=== PATIENT | male | born 1965 | race Hispanic/Latino ===

== ENCOUNTER → 2019-09-10 | Outpatient (CLI) | payer OTHER ==
[~2019-09-10] MED LIST: LIDOCAINE VISC 2% SOLN 15 ML UDC ONE; LIDOCAINE/PRILOCAINE 2.5-2.5% KIT ONE; MUPIROCIN 2% OINT 22 GM TUBE ONE
== END ==
LOC: WCC 14:22
PROVIDERS: ATTEND Family Medicine
DX: L89.153 Pressure ulcer of sacral region, stage 3 (principal); E55.9 Vitamin D deficiency, unspecified; F32.9 Major depressive disorder, single episode, unspecified; G82.20 Paraplegia, unspecified; M79.604 Pain in right leg; R32 Unspecified urinary incontinence; R53.1 Weakness; Z74.01 Bed confinement status; Z93.3 Colostomy status
CPT/HCPCS: 87071; 87075; 87186; 87205

== ENCOUNTER → 2019-09-15 | Outpatient (CLI) | payer OTHER | LOC: WCC 10:40 | PROVIDERS: ATTEND Family Medicine | DX: L89.153 Pressure ulcer of sacral region, stage 3 (principal); G82.20 Paraplegia, unspecified; M79.604 Pain in right leg; R53.1 Weakness; R32 Unspecified urinary incontinence; B96.89 Other specified bacterial agents as the cause of diseases classified elsewhere; E55.9 Vitamin D deficiency, unspecified; F32.9 Major depressive disorder, single episode, unspecified; Z74.01 Bed confinement status; Z93.3 Colostomy status ==

== ENCOUNTER → 2019-09-16 | Outpatient (CLI) | payer OTHER | LOC: WCC 14:10 | PROVIDERS: ATTEND Family Medicine | DX: L89.153 Pressure ulcer of sacral region, stage 3 (principal); G82.20 Paraplegia, unspecified; M79.604 Pain in right leg; R53.1 Weakness; R32 Unspecified urinary incontinence; B96.89 Other specified bacterial agents as the cause of diseases classified elsewhere; Z74.01 Bed confinement status; Z93.3 Colostomy status; F32.9 Major depressive disorder, single episode, unspecified; E55.9 Vitamin D deficiency, unspecified ==

== ENCOUNTER → 2019-09-17 | Outpatient (CLI) | payer OTHER | LOC: WCC 14:40 | PROVIDERS: ATTEND Family Medicine | DX: L89.153 Pressure ulcer of sacral region, stage 3 (principal); G82.20 Paraplegia, unspecified; M79.604 Pain in right leg; R53.1 Weakness; R32 Unspecified urinary incontinence; B96.89 Other specified bacterial agents as the cause of diseases classified elsewhere; Z93.3 Colostomy status; F32.9 Major depressive disorder, single episode, unspecified; E55.9 Vitamin D deficiency, unspecified; Z74.01 Bed confinement status ==

== ENCOUNTER → 2019-09-20 | Outpatient (CLI) | payer OTHER | LOC: WCC 12:53 | PROVIDERS: ATTEND Family Medicine | DX: L89.153 Pressure ulcer of sacral region, stage 3 (principal); G82.20 Paraplegia, unspecified; M79.604 Pain in right leg; R53.1 Weakness; B96.89 Other specified bacterial agents as the cause of diseases classified elsewhere; R32 Unspecified urinary incontinence; F32.9 Major depressive disorder, single episode, unspecified; E55.9 Vitamin D deficiency, unspecified; Z74.01 Bed confinement status; Z93.3 Colostomy status ==

== ENCOUNTER → 2019-09-21 | Outpatient (CLI) | payer OTHER | LOC: WCC 10:44 | PROVIDERS: ATTEND Family Medicine | DX: L89.153 Pressure ulcer of sacral region, stage 3 (principal); G82.20 Paraplegia, unspecified; M79.604 Pain in right leg; R53.1 Weakness; R32 Unspecified urinary incontinence; B96.89 Other specified bacterial agents as the cause of diseases classified elsewhere; E55.9 Vitamin D deficiency, unspecified; F32.9 Major depressive disorder, single episode, unspecified; Z93.3 Colostomy status; Z74.01 Bed confinement status ==

== ENCOUNTER → 2019-09-22 | Outpatient (CLI) | payer OTHER | LOC: WCC 10:25 | PROVIDERS: ATTEND Family Medicine | DX: L89.153 Pressure ulcer of sacral region, stage 3 (principal); G82.20 Paraplegia, unspecified; M79.604 Pain in right leg; R53.1 Weakness; R32 Unspecified urinary incontinence; B96.89 Other specified bacterial agents as the cause of diseases classified elsewhere; E55.9 Vitamin D deficiency, unspecified; F32.9 Major depressive disorder, single episode, unspecified; Z93.3 Colostomy status; Z74.01 Bed confinement status | CPT/HCPCS: 87071; 87075; 87205 ==

== ENCOUNTER → 2019-09-24 | Outpatient (CLI) | payer OTHER | LOC: WCC 12:45 | PROVIDERS: ATTEND Family Medicine | DX: L89.153 Pressure ulcer of sacral region, stage 3 (principal); B96.89 Other specified bacterial agents as the cause of diseases classified elsewhere; R32 Unspecified urinary incontinence; R53.1 Weakness; M79.604 Pain in right leg; G82.20 Paraplegia, unspecified; F32.9 Major depressive disorder, single episode, unspecified; E55.9 Vitamin D deficiency, unspecified; Z93.3 Colostomy status; Z74.01 Bed confinement status ==

== ENCOUNTER → 2019-09-27 | Outpatient (CLI) | payer OTHER | LOC: WCC 13:11 | PROVIDERS: ATTEND Family Medicine | DX: L89.153 Pressure ulcer of sacral region, stage 3 (principal); M79.604 Pain in right leg; R53.1 Weakness; G82.20 Paraplegia, unspecified; B96.89 Other specified bacterial agents as the cause of diseases classified elsewhere; E55.9 Vitamin D deficiency, unspecified; F32.9 Major depressive disorder, single episode, unspecified; R32 Unspecified urinary incontinence; Z93.3 Colostomy status; Z74.01 Bed confinement status ==

== ENCOUNTER → 2019-09-29 | Outpatient (CLI) | payer OTHER | LOC: WCC 09:27 | PROVIDERS: ATTEND Family Medicine | DX: L89.153 Pressure ulcer of sacral region, stage 3 (principal); M79.604 Pain in right leg; G82.20 Paraplegia, unspecified; R53.1 Weakness; B96.89 Other specified bacterial agents as the cause of diseases classified elsewhere; R32 Unspecified urinary incontinence; E55.9 Vitamin D deficiency, unspecified; F32.9 Major depressive disorder, single episode, unspecified; Z74.01 Bed confinement status; Z93.3 Colostomy status ==

== ENCOUNTER → 2019-10-01 | Outpatient (CLI) | payer OTHER | LOC: WCC 14:05 | PROVIDERS: ATTEND Family Medicine | DX: L89.153 Pressure ulcer of sacral region, stage 3 (principal); M79.604 Pain in right leg; R53.1 Weakness; G82.20 Paraplegia, unspecified; B96.89 Other specified bacterial agents as the cause of diseases classified elsewhere; R32 Unspecified urinary incontinence; F32.9 Major depressive disorder, single episode, unspecified; E55.9 Vitamin D deficiency, unspecified; Z93.3 Colostomy status; Z74.01 Bed confinement status ==

== ENCOUNTER → 2019-10-04 | Outpatient (CLI) | payer OTHER | LOC: WCC 11:22 | PROVIDERS: ATTEND Podiatrist Foot & Ankle Surgery | DX: L89.153 Pressure ulcer of sacral region, stage 3 (principal); B96.89 Other specified bacterial agents as the cause of diseases classified elsewhere; G82.20 Paraplegia, unspecified; M79.604 Pain in right leg; R53.1 Weakness; R32 Unspecified urinary incontinence; F32.9 Major depressive disorder, single episode, unspecified; E55.9 Vitamin D deficiency, unspecified; Z93.3 Colostomy status; Z74.01 Bed confinement status ==

== ENCOUNTER → 2019-10-06 | Outpatient (CLI) | payer OTHER ==
--- NOTE | 2019-10-06 11:56 | Diagnostic Imaging Report ---
EXAMINATION: SP LUMBAR, COMPLETE MIN 4VW INDICATION: Sacral pressure ulcer COMPARISON: None FINDINGS: No compression fracture. Alignment is anatomic. Oblique images demonstrate no evidence of spondylolysis. Mild multilevel degenerative changes with disc space narrowing and small osteophyte formation, most notably at L4-5 and L5-S1. No specific radiographic evidence of osteomyelitis. IMPRESSION: No acute osseous injury. Multilevel degenerative changes. Signed by: Dami Fitzgerald MD on 10/06/2019 11:53 AM
== END ==
LOC: RAD 10:42
PROVIDERS: ATTEND Family Medicine
DX: L89.153 Pressure ulcer of sacral region, stage 3 (principal)
CPT/HCPCS: 72110

== ENCOUNTER → 2019-10-06 | Outpatient (CLI) | payer OTHER | LOC: WCC 09:02 | PROVIDERS: ATTEND Family Medicine | DX: L89.153 Pressure ulcer of sacral region, stage 3 (principal); G82.20 Paraplegia, unspecified; M79.604 Pain in right leg; R53.1 Weakness; R32 Unspecified urinary incontinence; B96.89 Other specified bacterial agents as the cause of diseases classified elsewhere; E55.9 Vitamin D deficiency, unspecified; F32.9 Major depressive disorder, single episode, unspecified; Z93.3 Colostomy status; Z74.01 Bed confinement status ==

== ENCOUNTER → 2019-10-08 | Outpatient (CLI) | payer OTHER ==
[~2019-10-08] MED LIST changes: +COLLAGENASE OINTMENT 30 GM TUBE ONE
== END ==
LOC: WCC 11:06
PROVIDERS: ATTEND Family Medicine
DX: L89.153 Pressure ulcer of sacral region, stage 3 (principal); M79.604 Pain in right leg; R53.1 Weakness; G82.20 Paraplegia, unspecified; R32 Unspecified urinary incontinence; B96.89 Other specified bacterial agents as the cause of diseases classified elsewhere; F32.9 Major depressive disorder, single episode, unspecified; E55.9 Vitamin D deficiency, unspecified; Z74.01 Bed confinement status; Z93.3 Colostomy status

== ENCOUNTER → 2019-10-11 | Outpatient (CLI) | payer OTHER | LOC: WCC 14:24 | PROVIDERS: ATTEND Family Medicine | DX: L89.153 Pressure ulcer of sacral region, stage 3 (principal); G82.20 Paraplegia, unspecified; R53.1 Weakness; M79.604 Pain in right leg; R32 Unspecified urinary incontinence; B96.89 Other specified bacterial agents as the cause of diseases classified elsewhere; F32.9 Major depressive disorder, single episode, unspecified; E55.9 Vitamin D deficiency, unspecified; Z93.3 Colostomy status; Z74.01 Bed confinement status ==

== ENCOUNTER → 2019-10-13 | Outpatient (CLI) | payer OTHER | LOC: WCC 13:37 | PROVIDERS: ATTEND Family Medicine | DX: L89.153 Pressure ulcer of sacral region, stage 3 (principal); G82.20 Paraplegia, unspecified; M79.604 Pain in right leg; R53.1 Weakness; R32 Unspecified urinary incontinence; B96.89 Other specified bacterial agents as the cause of diseases classified elsewhere; E55.9 Vitamin D deficiency, unspecified; F32.9 Major depressive disorder, single episode, unspecified; Z74.01 Bed confinement status; Z93.3 Colostomy status ==

== ENCOUNTER → 2019-10-15 | Outpatient (CLI) | payer OTHER | LOC: WCC 10:18 | PROVIDERS: ATTEND Family Medicine | DX: L89.153 Pressure ulcer of sacral region, stage 3 (principal); G82.20 Paraplegia, unspecified; M79.604 Pain in right leg; R32 Unspecified urinary incontinence; R53.1 Weakness; B96.89 Other specified bacterial agents as the cause of diseases classified elsewhere; F32.9 Major depressive disorder, single episode, unspecified; E55.9 Vitamin D deficiency, unspecified; Z93.3 Colostomy status; Z74.01 Bed confinement status ==

== ENCOUNTER → 2019-10-18 | Outpatient (CLI) | payer OTHER | LOC: WCC 03:00 | PROVIDERS: ATTEND Family Medicine | DX: L89.153 Pressure ulcer of sacral region, stage 3 (principal); G82.20 Paraplegia, unspecified; R53.1 Weakness; M79.604 Pain in right leg; R32 Unspecified urinary incontinence; B96.89 Other specified bacterial agents as the cause of diseases classified elsewhere; F32.9 Major depressive disorder, single episode, unspecified; E55.9 Vitamin D deficiency, unspecified; Z93.3 Colostomy status; Z74.01 Bed confinement status ==

== ENCOUNTER → 2019-10-20 | Outpatient (CLI) | payer OTHER | LOC: WCC 14:11 | PROVIDERS: ATTEND Family Medicine | DX: L89.153 Pressure ulcer of sacral region, stage 3 (principal); G82.20 Paraplegia, unspecified; M79.604 Pain in right leg; R53.1 Weakness; R32 Unspecified urinary incontinence; B96.89 Other specified bacterial agents as the cause of diseases classified elsewhere; E55.9 Vitamin D deficiency, unspecified; F32.9 Major depressive disorder, single episode, unspecified; Z74.01 Bed confinement status; Z93.3 Colostomy status ==

== ENCOUNTER → 2019-10-22 | Outpatient (CLI) | payer OTHER | LOC: WCC 10:50 | PROVIDERS: ATTEND Family Medicine | DX: L89.153 Pressure ulcer of sacral region, stage 3 (principal); R32 Unspecified urinary incontinence; R53.1 Weakness; M79.604 Pain in right leg; G82.20 Paraplegia, unspecified; F32.9 Major depressive disorder, single episode, unspecified; E55.9 Vitamin D deficiency, unspecified; Z93.3 Colostomy status; Z74.01 Bed confinement status ==

== ENCOUNTER → 2019-10-25 | Outpatient (CLI) | payer OTHER | LOC: WCC 13:27 | PROVIDERS: ATTEND Family Medicine | DX: L89.153 Pressure ulcer of sacral region, stage 3 (principal); R32 Unspecified urinary incontinence; R53.1 Weakness; M79.604 Pain in right leg; G82.20 Paraplegia, unspecified; F32.9 Major depressive disorder, single episode, unspecified; E55.9 Vitamin D deficiency, unspecified; Z93.3 Colostomy status; Z74.01 Bed confinement status ==

== ENCOUNTER → 2019-10-27 | Outpatient (CLI) | payer OTHER | LOC: WCC 13:19 | PROVIDERS: ATTEND Family Medicine | DX: L89.153 Pressure ulcer of sacral region, stage 3 (principal); G82.20 Paraplegia, unspecified; M79.604 Pain in right leg; R32 Unspecified urinary incontinence; R53.1 Weakness; E55.9 Vitamin D deficiency, unspecified; F32.9 Major depressive disorder, single episode, unspecified; Z74.01 Bed confinement status; Z93.3 Colostomy status ==

== ENCOUNTER → 2019-10-29 | Outpatient (CLI) | payer OTHER | LOC: WCC 14:00 | PROVIDERS: ATTEND Family Medicine | DX: L89.153 Pressure ulcer of sacral region, stage 3 (principal); R32 Unspecified urinary incontinence; R53.1 Weakness; M79.604 Pain in right leg; G82.20 Paraplegia, unspecified; F32.9 Major depressive disorder, single episode, unspecified; E55.9 Vitamin D deficiency, unspecified; Z93.3 Colostomy status; Z74.01 Bed confinement status ==

== ENCOUNTER → 2019-11-02 | Outpatient (CLI) | payer OTHER | LOC: WCC 14:34 | PROVIDERS: ATTEND Family Medicine | DX: L89.153 Pressure ulcer of sacral region, stage 3 (principal); R32 Unspecified urinary incontinence; R53.1 Weakness; M79.604 Pain in right leg; G82.20 Paraplegia, unspecified; F32.9 Major depressive disorder, single episode, unspecified; E55.9 Vitamin D deficiency, unspecified; Z93.3 Colostomy status; Z74.01 Bed confinement status ==

== ENCOUNTER → 2019-11-04 | Outpatient (CLI) | payer OTHER | LOC: WCC 10:50 | PROVIDERS: ATTEND Family Medicine | DX: L89.153 Pressure ulcer of sacral region, stage 3 (principal); G82.20 Paraplegia, unspecified; M79.604 Pain in right leg; R32 Unspecified urinary incontinence; R53.1 Weakness; E55.9 Vitamin D deficiency, unspecified; F32.9 Major depressive disorder, single episode, unspecified; Z74.01 Bed confinement status; Z93.3 Colostomy status ==

== ENCOUNTER → 2019-11-08 | Outpatient (CLI) | payer OTHER ==
[~2019-11-08] MED LIST changes: -COLLAGENASE OINTMENT 30 GM TUBE ONE; -MUPIROCIN 2% OINT 22 GM TUBE ONE
== END ==
LOC: WCC 11:12
PROVIDERS: ATTEND Family Medicine
DX: L89.153 Pressure ulcer of sacral region, stage 3 (principal); G82.20 Paraplegia, unspecified; M79.604 Pain in right leg; R32 Unspecified urinary incontinence; R53.1 Weakness; F32.9 Major depressive disorder, single episode, unspecified; E55.9 Vitamin D deficiency, unspecified; Z93.3 Colostomy status; Z74.01 Bed confinement status
CPT/HCPCS: 36415

== ENCOUNTER → 2019-11-10 | Outpatient (CLI) | payer OTHER | LOC: WCC 13:44 | PROVIDERS: ATTEND Family Medicine | DX: L89.153 Pressure ulcer of sacral region, stage 3 (principal); G82.20 Paraplegia, unspecified; R32 Unspecified urinary incontinence; M79.604 Pain in right leg; R53.1 Weakness; E55.9 Vitamin D deficiency, unspecified; F32.9 Major depressive disorder, single episode, unspecified; Z74.01 Bed confinement status; Z93.3 Colostomy status ==

== ENCOUNTER → 2019-11-12 | Outpatient (CLI) | payer OTHER | LOC: WCC 12:17 | PROVIDERS: ATTEND Family Medicine | DX: L89.153 Pressure ulcer of sacral region, stage 3 (principal); G82.20 Paraplegia, unspecified; R32 Unspecified urinary incontinence; R53.1 Weakness; M79.604 Pain in right leg; F32.9 Major depressive disorder, single episode, unspecified; E55.9 Vitamin D deficiency, unspecified; Z74.01 Bed confinement status; Z93.3 Colostomy status ==

== ENCOUNTER → 2019-11-15 | Outpatient (CLI) | payer OTHER ==
[2019-11-15 14:02] LABS: ALANINE AMINOTRANSFERASE 40 IU/L (0-55); ALBUMIN 4.1 g/dL (3.5-5.0); ALBUMIN/GLOBULIN RATIO 1.5 (0.8-2.0); ALKALINE PHOSPHATASE 79 IU/L (40-150); BLOOD UREA NITROGEN 14 mg/dL (7-26); BUN/CREATININE RATIO 16 (6-25); CALCIUM 9.2 mg/dL (8.4-10.2); CARBON DIOXIDE 25 mmol/L (22-29); CHLORIDE 104 mmol/L (98-107); CREATININE, SERUM 0.87 mg/dL (0.72-1.25); EST GLOMERULAR FILTRATION RATE > 60 ML/MIN (60-); GLUCOSE 74 mg/dL (74-118); SODIUM 140 mmol/L (136-145)
[2019-11-15 14:04] LABS: BASOPHILS % 0.7 % (0.0-1.0); EOSINOPHILS # (AUTO) 0.2 (0.0-0.4); EOSINOPHILS % 2.7 % (0.0-6.0); HEMATOCRIT 41.1 % (38.2-49.6); HEMOGLOBIN 13.4 g/dL (14.0-18.0); LYMPHOCYTES # (AUTO) 1.4 (1.0-3.2); LYMPHOCYTES % 23.4 % (18.0-39.1); MEAN CORPUSCULAR HEMOGLOBIN 29.5 pg (28-32); MEAN CORPUSCULAR HGB CONC 32.6 g/dL (31-35); MEAN CORPUSCULAR VOLUME 90.3 fL (81-99); MONOCYTES # (AUTO) 0.5 (0.2-0.8); NEUTROPHILS # (AUTO) 3.8 (2.1-6.9); NEUTROPHILS % 64.7 % (38.7-80.0); PLATELET COUNT 186 x10e3/uL (140-360); RED BLOOD COUNT 4.55 x10e6/uL (4.3-5.7)
== END ==
LOC: WCC 13:50
PROVIDERS: ATTEND Family Medicine
DX: L89.153 Pressure ulcer of sacral region, stage 3 (principal); G82.20 Paraplegia, unspecified; R32 Unspecified urinary incontinence; M79.604 Pain in right leg; R53.1 Weakness; F32.9 Major depressive disorder, single episode, unspecified; E55.9 Vitamin D deficiency, unspecified; Z74.01 Bed confinement status; Z93.3 Colostomy status
CPT/HCPCS: 36415; 80053; 84134; 85025

== ENCOUNTER → 2019-11-18 | Outpatient (CLI) | payer OTHER | LOC: WCC 12:56 | PROVIDERS: ATTEND Family Medicine | DX: L89.153 Pressure ulcer of sacral region, stage 3 (principal); G82.20 Paraplegia, unspecified; R32 Unspecified urinary incontinence; R53.1 Weakness; M79.604 Pain in right leg; E55.9 Vitamin D deficiency, unspecified; F32.9 Major depressive disorder, single episode, unspecified; Z74.01 Bed confinement status; Z93.3 Colostomy status | CPT/HCPCS: Q4186 ==

== ENCOUNTER → 2019-11-22 | Outpatient (CLI) | payer OTHER | LOC: WCC 12:25 | PROVIDERS: ATTEND Family Medicine | DX: L89.153 Pressure ulcer of sacral region, stage 3 (principal); G82.20 Paraplegia, unspecified; R32 Unspecified urinary incontinence; R53.1 Weakness; M79.604 Pain in right leg; F32.9 Major depressive disorder, single episode, unspecified; E55.9 Vitamin D deficiency, unspecified; Z74.01 Bed confinement status; Z93.3 Colostomy status ==

== ENCOUNTER → 2019-11-24 | Outpatient (CLI) | payer OTHER | LOC: WCC 14:07 | PROVIDERS: ATTEND Family Medicine | DX: L89.153 Pressure ulcer of sacral region, stage 3 (principal); G82.20 Paraplegia, unspecified; M79.604 Pain in right leg; R32 Unspecified urinary incontinence; R53.1 Weakness; E55.9 Vitamin D deficiency, unspecified; F32.9 Major depressive disorder, single episode, unspecified; Z93.3 Colostomy status; Z74.01 Bed confinement status | CPT/HCPCS: Q4186 ==

== ENCOUNTER → 2019-11-26 | Outpatient (CLI) | payer OTHER | LOC: WCC 13:06 | PROVIDERS: ATTEND Family Medicine | DX: L89.153 Pressure ulcer of sacral region, stage 3 (principal); G82.20 Paraplegia, unspecified; M79.604 Pain in right leg; R53.1 Weakness; R32 Unspecified urinary incontinence; F32.9 Major depressive disorder, single episode, unspecified; E55.9 Vitamin D deficiency, unspecified; Z74.01 Bed confinement status; Z93.3 Colostomy status ==

== ENCOUNTER → 2019-12-03 | Outpatient (CLI) | payer OTHER | LOC: WCC 10:18 | PROVIDERS: ATTEND Family Medicine | DX: L89.153 Pressure ulcer of sacral region, stage 3 (principal); G82.20 Paraplegia, unspecified; R32 Unspecified urinary incontinence; R53.1 Weakness; M79.604 Pain in right leg; F32.9 Major depressive disorder, single episode, unspecified; E55.9 Vitamin D deficiency, unspecified; Z74.01 Bed confinement status; Z93.3 Colostomy status ==

== ENCOUNTER → 2019-12-06 | Outpatient (CLI) | payer OTHER | LOC: WCC 13:13 | PROVIDERS: ATTEND Family Medicine | DX: L89.153 Pressure ulcer of sacral region, stage 3 (principal); G82.20 Paraplegia, unspecified; R32 Unspecified urinary incontinence; R53.1 Weakness; M79.604 Pain in right leg; F32.9 Major depressive disorder, single episode, unspecified; E55.9 Vitamin D deficiency, unspecified; Z93.3 Colostomy status; Z74.01 Bed confinement status ==

== ENCOUNTER → 2019-12-08 | Outpatient (CLI) | payer OTHER ==
[~2019-12-08] MED LIST changes: -LIDOCAINE VISC 2% SOLN 15 ML UDC ONE
== END ==
LOC: WCC 11:00
PROVIDERS: ATTEND Family Medicine
DX: L89.153 Pressure ulcer of sacral region, stage 3 (principal); M79.604 Pain in right leg; R32 Unspecified urinary incontinence; R53.1 Weakness; E55.9 Vitamin D deficiency, unspecified; F32.9 Major depressive disorder, single episode, unspecified; Z74.01 Bed confinement status; Z93.3 Colostomy status
CPT/HCPCS: Q4186

== ENCOUNTER → 2019-12-10 | Outpatient (CLI) | payer OTHER | LOC: WCC 09:06 | PROVIDERS: ATTEND Family Medicine | DX: L89.153 Pressure ulcer of sacral region, stage 3 (principal); G82.20 Paraplegia, unspecified; M79.604 Pain in right leg; R32 Unspecified urinary incontinence; R53.1 Weakness; F32.9 Major depressive disorder, single episode, unspecified; E55.9 Vitamin D deficiency, unspecified; Z74.01 Bed confinement status; Z93.3 Colostomy status ==

== ENCOUNTER → 2019-12-13 | Outpatient (CLI) | payer OTHER | LOC: WCC 10:40 | PROVIDERS: ATTEND Family Medicine | DX: L89.153 Pressure ulcer of sacral region, stage 3 (principal); G82.20 Paraplegia, unspecified; R32 Unspecified urinary incontinence; R53.1 Weakness; M79.604 Pain in right leg; F32.9 Major depressive disorder, single episode, unspecified; E55.9 Vitamin D deficiency, unspecified; Z93.3 Colostomy status; Z74.01 Bed confinement status ==

== ENCOUNTER → 2019-12-15 | Outpatient (CLI) | payer OTHER | LOC: WCC 12-14 11:14 | PROVIDERS: ATTEND Family Medicine | DX: L89.153 Pressure ulcer of sacral region, stage 3 (principal); G82.20 Paraplegia, unspecified; R32 Unspecified urinary incontinence; M79.604 Pain in right leg; R53.1 Weakness; F32.9 Major depressive disorder, single episode, unspecified; E55.9 Vitamin D deficiency, unspecified; Z74.01 Bed confinement status; Z93.3 Colostomy status ==

== ENCOUNTER → 2019-12-17 | Outpatient (CLI) | payer OTHER | LOC: WCC 12:26 | PROVIDERS: ATTEND Family Medicine | DX: L89.153 Pressure ulcer of sacral region, stage 3 (principal); G82.20 Paraplegia, unspecified; R32 Unspecified urinary incontinence; M79.604 Pain in right leg; R53.1 Weakness; F32.9 Major depressive disorder, single episode, unspecified; E55.9 Vitamin D deficiency, unspecified; Z93.3 Colostomy status; Z74.01 Bed confinement status ==

== ENCOUNTER → 2019-12-20 | Outpatient (CLI) | payer OTHER | LOC: WCC 14:11 | PROVIDERS: ATTEND Family Medicine | DX: L89.153 Pressure ulcer of sacral region, stage 3 (principal); G82.20 Paraplegia, unspecified; R32 Unspecified urinary incontinence; R53.1 Weakness; M79.604 Pain in right leg; F32.9 Major depressive disorder, single episode, unspecified; E55.9 Vitamin D deficiency, unspecified; Z93.3 Colostomy status; Z74.01 Bed confinement status ==

== ENCOUNTER → 2019-12-22 | Outpatient (CLI) | payer OTHER | LOC: WCC 10:22 | PROVIDERS: ATTEND Family Medicine | DX: L89.153 Pressure ulcer of sacral region, stage 3 (principal); G82.20 Paraplegia, unspecified; R32 Unspecified urinary incontinence; M79.604 Pain in right leg; R53.1 Weakness; E55.9 Vitamin D deficiency, unspecified; F32.9 Major depressive disorder, single episode, unspecified; Z74.01 Bed confinement status; Z93.3 Colostomy status | CPT/HCPCS: Q4186 ==

== ENCOUNTER → 2019-12-24 | Outpatient (CLI) | payer OTHER | LOC: WCC 11:00 | PROVIDERS: ATTEND Family Medicine | DX: L89.153 Pressure ulcer of sacral region, stage 3 (principal); G82.20 Paraplegia, unspecified; R32 Unspecified urinary incontinence; R53.1 Weakness; M79.604 Pain in right leg; F32.9 Major depressive disorder, single episode, unspecified; E55.9 Vitamin D deficiency, unspecified; Z74.01 Bed confinement status; Z93.3 Colostomy status ==

== ENCOUNTER → 2019-12-27 | Outpatient (CLI) | payer OTHER | LOC: WCC 12:53 | PROVIDERS: ATTEND Family Medicine | DX: L89.153 Pressure ulcer of sacral region, stage 3 (principal); G82.20 Paraplegia, unspecified; R32 Unspecified urinary incontinence; M79.604 Pain in right leg; R53.1 Weakness; F32.9 Major depressive disorder, single episode, unspecified; E55.9 Vitamin D deficiency, unspecified; Z93.3 Colostomy status; Z74.01 Bed confinement status ==

== ENCOUNTER → 2019-12-29 | Outpatient (CLI) | payer OTHER | LOC: WCC 11:19 | PROVIDERS: ATTEND Family Medicine | DX: L89.153 Pressure ulcer of sacral region, stage 3 (principal); G82.20 Paraplegia, unspecified; R32 Unspecified urinary incontinence; M79.604 Pain in right leg; R53.1 Weakness; E55.9 Vitamin D deficiency, unspecified; F32.9 Major depressive disorder, single episode, unspecified; Z93.3 Colostomy status; Z74.01 Bed confinement status ==

== ENCOUNTER → 2019-12-31 | Outpatient (CLI) | payer OTHER | LOC: WCC 11:06 | PROVIDERS: ATTEND Family Medicine | DX: L89.153 Pressure ulcer of sacral region, stage 3 (principal); G82.20 Paraplegia, unspecified; R32 Unspecified urinary incontinence; R53.1 Weakness; M79.604 Pain in right leg; F32.9 Major depressive disorder, single episode, unspecified; E55.9 Vitamin D deficiency, unspecified; Z74.01 Bed confinement status; Z93.3 Colostomy status ==

== ENCOUNTER → 2020-01-03 | Outpatient (CLI) | payer OTHER | LOC: WCC 12:57 | PROVIDERS: ATTEND Family Medicine | DX: L89.153 Pressure ulcer of sacral region, stage 3 (principal); R32 Unspecified urinary incontinence; R53.1 Weakness; M79.604 Pain in right leg; G82.20 Paraplegia, unspecified; F32.9 Major depressive disorder, single episode, unspecified; E55.9 Vitamin D deficiency, unspecified; Z93.3 Colostomy status; Z74.01 Bed confinement status ==

== ENCOUNTER → 2020-01-05 | Outpatient (CLI) | payer OTHER | LOC: WCC 11:26 | PROVIDERS: ATTEND Family Medicine | DX: L89.153 Pressure ulcer of sacral region, stage 3 (principal); R32 Unspecified urinary incontinence; R53.1 Weakness; M79.604 Pain in right leg; G82.20 Paraplegia, unspecified; E55.9 Vitamin D deficiency, unspecified; F32.9 Major depressive disorder, single episode, unspecified; Z93.3 Colostomy status; Z74.01 Bed confinement status | CPT/HCPCS: Q4186 ==

== ENCOUNTER → 2020-01-07 | Outpatient (CLI) | payer OTHER | LOC: WCC 14:18 | PROVIDERS: ATTEND Family Medicine | DX: L89.153 Pressure ulcer of sacral region, stage 3 (principal); R32 Unspecified urinary incontinence; R53.1 Weakness; G82.20 Paraplegia, unspecified; M79.604 Pain in right leg; E55.9 Vitamin D deficiency, unspecified; F32.9 Major depressive disorder, single episode, unspecified; Z74.01 Bed confinement status; Z93.3 Colostomy status ==

== ENCOUNTER → 2020-01-10 | Outpatient (CLI) | payer OTHER ==
[~2020-01-10] MED LIST changes: +LIDOCAINE VISC 2% SOLN 15 ML UDC ONE
== END ==
LOC: WCC 14:36
PROVIDERS: ATTEND Family Medicine
DX: L89.153 Pressure ulcer of sacral region, stage 3 (principal); R32 Unspecified urinary incontinence; M79.604 Pain in right leg; R53.1 Weakness; G82.20 Paraplegia, unspecified; F32.9 Major depressive disorder, single episode, unspecified; E55.9 Vitamin D deficiency, unspecified; Z93.3 Colostomy status; Z74.01 Bed confinement status

== ENCOUNTER → 2020-01-12 | Outpatient (CLI) | payer OTHER | LOC: WCC 13:51 | PROVIDERS: ATTEND Family Medicine | DX: L89.153 Pressure ulcer of sacral region, stage 3 (principal); R32 Unspecified urinary incontinence; M79.604 Pain in right leg; R53.1 Weakness; G82.20 Paraplegia, unspecified; E55.9 Vitamin D deficiency, unspecified; F32.9 Major depressive disorder, single episode, unspecified; Z74.01 Bed confinement status; Z93.3 Colostomy status | CPT/HCPCS: Q4186 ==

== ENCOUNTER → 2020-01-14 | Outpatient (CLI) | payer OTHER | LOC: WCC 11:37 | PROVIDERS: ATTEND Family Medicine | DX: L89.153 Pressure ulcer of sacral region, stage 3 (principal); G82.20 Paraplegia, unspecified; R32 Unspecified urinary incontinence; M79.604 Pain in right leg; R53.1 Weakness; F32.9 Major depressive disorder, single episode, unspecified; E55.9 Vitamin D deficiency, unspecified; Z74.01 Bed confinement status; Z93.3 Colostomy status ==

== ENCOUNTER → 2020-01-17 | Outpatient (CLI) | payer OTHER | LOC: WCC 13:43 | PROVIDERS: ATTEND Family Medicine | DX: L89.153 Pressure ulcer of sacral region, stage 3 (principal); G82.20 Paraplegia, unspecified; R32 Unspecified urinary incontinence; M79.604 Pain in right leg; R53.1 Weakness; E55.9 Vitamin D deficiency, unspecified; F32.9 Major depressive disorder, single episode, unspecified; Z93.3 Colostomy status; Z74.01 Bed confinement status ==

== ENCOUNTER → 2020-01-19 | Outpatient (CLI) | payer OTHER | LOC: WCC 12:42 | PROVIDERS: ATTEND Family Medicine | DX: L89.153 Pressure ulcer of sacral region, stage 3 (principal); G82.20 Paraplegia, unspecified; M79.604 Pain in right leg; R32 Unspecified urinary incontinence; R53.1 Weakness; E55.9 Vitamin D deficiency, unspecified; F32.9 Major depressive disorder, single episode, unspecified; Z74.01 Bed confinement status; Z93.3 Colostomy status ==

== ENCOUNTER → 2020-01-21 | Outpatient (CLI) | payer OTHER | LOC: WCC 13:10 | PROVIDERS: ATTEND Family Medicine | DX: L89.153 Pressure ulcer of sacral region, stage 3 (principal); G82.20 Paraplegia, unspecified; R32 Unspecified urinary incontinence; R53.1 Weakness; M79.604 Pain in right leg; F32.9 Major depressive disorder, single episode, unspecified; E55.9 Vitamin D deficiency, unspecified; Z93.3 Colostomy status; Z74.01 Bed confinement status ==

== ENCOUNTER → 2020-01-24 | Outpatient (CLI) | payer OTHER | LOC: WCC 15:47 | PROVIDERS: ATTEND Family Medicine | DX: L89.153 Pressure ulcer of sacral region, stage 3 (principal); G82.20 Paraplegia, unspecified; R32 Unspecified urinary incontinence; M79.604 Pain in right leg; R53.1 Weakness; F32.9 Major depressive disorder, single episode, unspecified; E55.9 Vitamin D deficiency, unspecified; Z93.3 Colostomy status; Z74.01 Bed confinement status ==

== ENCOUNTER → 2020-01-26 | Outpatient (CLI) | payer OTHER | LOC: WCC 11:58 | PROVIDERS: ATTEND Family Medicine | DX: L89.153 Pressure ulcer of sacral region, stage 3 (principal); G82.20 Paraplegia, unspecified; R32 Unspecified urinary incontinence; R53.1 Weakness; M79.604 Pain in right leg; E55.9 Vitamin D deficiency, unspecified; F32.9 Major depressive disorder, single episode, unspecified; Z93.3 Colostomy status; Z74.01 Bed confinement status | CPT/HCPCS: 15271; Q4186 ==

== ENCOUNTER → 2020-01-28 | Outpatient (CLI) | payer OTHER | LOC: WCC 14:35 | PROVIDERS: ATTEND Family Medicine | DX: L89.153 Pressure ulcer of sacral region, stage 3 (principal); R32 Unspecified urinary incontinence; R53.1 Weakness; M79.604 Pain in right leg; G82.20 Paraplegia, unspecified; F32.9 Major depressive disorder, single episode, unspecified; E55.9 Vitamin D deficiency, unspecified; Z93.3 Colostomy status; Z74.01 Bed confinement status ==

== ENCOUNTER → 2020-01-31 | Outpatient (CLI) | payer OTHER | LOC: WCC 11:49 | PROVIDERS: ATTEND Family Medicine | DX: L89.153 Pressure ulcer of sacral region, stage 3 (principal); R32 Unspecified urinary incontinence; R53.1 Weakness; M79.604 Pain in right leg; G82.20 Paraplegia, unspecified; F32.9 Major depressive disorder, single episode, unspecified; E55.9 Vitamin D deficiency, unspecified; Z93.3 Colostomy status; Z74.01 Bed confinement status ==

== ENCOUNTER → 2020-03-03 | Outpatient (CLI) | payer OTHER | LOC: WCC 13:55 | PROVIDERS: ATTEND Family Medicine | DX: L89.153 Pressure ulcer of sacral region, stage 3 (principal); L89.616 Pressure-induced deep tissue damage of right heel; M96.89 Other intraoperative and postprocedural complications and disorders of the musculoskeletal system; S31.103A Unspecified open wound of abdominal wall, right lower quadrant without penetration into peritoneal cavity, initial encounter; R32 Unspecified urinary incontinence; R53.1 Weakness; M79.604 Pain in right leg; G82.20 Paraplegia, unspecified; F32.9 Major depressive disorder, single episode, unspecified; E55.9 Vitamin D deficiency, unspecified; Z93.3 Colostomy status; Z74.01 Bed confinement status ==

== ENCOUNTER → 2020-03-06 | Outpatient (CLI) | payer OTHER | LOC: WCC 14:44 | PROVIDERS: ATTEND Family Medicine | DX: L89.153 Pressure ulcer of sacral region, stage 3 (principal); L89.616 Pressure-induced deep tissue damage of right heel; M96.89 Other intraoperative and postprocedural complications and disorders of the musculoskeletal system; S31.103A Unspecified open wound of abdominal wall, right lower quadrant without penetration into peritoneal cavity, initial encounter; R32 Unspecified urinary incontinence; R53.1 Weakness; G82.20 Paraplegia, unspecified; M79.604 Pain in right leg; F32.9 Major depressive disorder, single episode, unspecified; E55.9 Vitamin D deficiency, unspecified; Z93.3 Colostomy status; Z74.01 Bed confinement status ==

== ENCOUNTER → 2020-03-08 | Outpatient (CLI) | payer OTHER | LOC: WCC 11:13 | PROVIDERS: ATTEND Family Medicine | DX: L89.153 Pressure ulcer of sacral region, stage 3 (principal); L89.612 Pressure ulcer of right heel, stage 2; L89.616 Pressure-induced deep tissue damage of right heel; M96.89 Other intraoperative and postprocedural complications and disorders of the musculoskeletal system; S31.103A Unspecified open wound of abdominal wall, right lower quadrant without penetration into peritoneal cavity, initial encounter; R32 Unspecified urinary incontinence; M79.604 Pain in right leg; R53.1 Weakness; G82.20 Paraplegia, unspecified; E55.9 Vitamin D deficiency, unspecified; F32.9 Major depressive disorder, single episode, unspecified; Z93.3 Colostomy status; Z74.01 Bed confinement status ==

== ENCOUNTER → 2020-03-10 | Outpatient (CLI) | payer OTHER ==
[~2020-03-10] MED LIST changes: +COLLAGENASE OINTMENT 30 GM TUBE ONE; +MINERAL OIL/PETROLAT/GLYCERI 6OZ BTL ONE; +MUPIROCIN 2% OINT 22 GM TUBE ONE; +TRYPSIN/BALSAM PERU/CASTOR OIL ONE
== END ==
LOC: WCC 15:19
PROVIDERS: ATTEND Family Medicine
DX: L89.153 Pressure ulcer of sacral region, stage 3 (principal); L89.612 Pressure ulcer of right heel, stage 2; M96.89 Other intraoperative and postprocedural complications and disorders of the musculoskeletal system; S31.103A Unspecified open wound of abdominal wall, right lower quadrant without penetration into peritoneal cavity, initial encounter; R32 Unspecified urinary incontinence; R53.1 Weakness; M79.604 Pain in right leg; G82.20 Paraplegia, unspecified; F32.9 Major depressive disorder, single episode, unspecified; E55.9 Vitamin D deficiency, unspecified; Z93.3 Colostomy status; Z74.01 Bed confinement status

== ENCOUNTER → 2020-03-15 | Outpatient (CLI) | payer OTHER | LOC: WCC 14:51 | PROVIDERS: ATTEND Family Medicine | DX: L89.153 Pressure ulcer of sacral region, stage 3 (principal); L89.612 Pressure ulcer of right heel, stage 2; M96.89 Other intraoperative and postprocedural complications and disorders of the musculoskeletal system; S31.103A Unspecified open wound of abdominal wall, right lower quadrant without penetration into peritoneal cavity, initial encounter; R32 Unspecified urinary incontinence; M79.604 Pain in right leg; R53.1 Weakness; G82.20 Paraplegia, unspecified; E55.9 Vitamin D deficiency, unspecified; F32.9 Major depressive disorder, single episode, unspecified; Z74.01 Bed confinement status; Z93.3 Colostomy status ==

== ENCOUNTER → 2020-03-17 | Outpatient (CLI) | payer OTHER | LOC: WCC 14:01 | PROVIDERS: ATTEND Family Medicine | DX: L89.153 Pressure ulcer of sacral region, stage 3 (principal); L89.612 Pressure ulcer of right heel, stage 2; M96.89 Other intraoperative and postprocedural complications and disorders of the musculoskeletal system; S31.103A Unspecified open wound of abdominal wall, right lower quadrant without penetration into peritoneal cavity, initial encounter; R32 Unspecified urinary incontinence; R53.1 Weakness; M79.604 Pain in right leg; G82.20 Paraplegia, unspecified; F32.9 Major depressive disorder, single episode, unspecified; E55.9 Vitamin D deficiency, unspecified; Z93.3 Colostomy status; Z74.01 Bed confinement status ==

== ENCOUNTER → 2020-03-20 | Outpatient (CLI) | payer OTHER | LOC: WCC 11:25 | PROVIDERS: ATTEND Family Medicine | DX: L89.153 Pressure ulcer of sacral region, stage 3 (principal); L89.612 Pressure ulcer of right heel, stage 2; M96.89 Other intraoperative and postprocedural complications and disorders of the musculoskeletal system; S31.103A Unspecified open wound of abdominal wall, right lower quadrant without penetration into peritoneal cavity, initial encounter; R32 Unspecified urinary incontinence; R53.1 Weakness; M79.604 Pain in right leg; G82.20 Paraplegia, unspecified; F32.9 Major depressive disorder, single episode, unspecified; E55.9 Vitamin D deficiency, unspecified; Z74.01 Bed confinement status; Z93.3 Colostomy status ==

== ENCOUNTER → 2020-03-22 | Outpatient (CLI) | payer OTHER | LOC: WCC 14:54 | PROVIDERS: ATTEND Family Medicine | DX: L89.153 Pressure ulcer of sacral region, stage 3 (principal); L89.612 Pressure ulcer of right heel, stage 2; M96.89 Other intraoperative and postprocedural complications and disorders of the musculoskeletal system; S31.103A Unspecified open wound of abdominal wall, right lower quadrant without penetration into peritoneal cavity, initial encounter; M79.604 Pain in right leg; R53.2 Functional quadriplegia; R83.1 Abnormal level of hormones in cerebrospinal fluid; E55.9 Vitamin D deficiency, unspecified; F32.9 Major depressive disorder, single episode, unspecified; Z74.01 Bed confinement status; Z93.3 Colostomy status ==

== ENCOUNTER → 2020-03-24 | Outpatient (CLI) | payer OTHER | LOC: WCC 13:32 | PROVIDERS: ATTEND Family Medicine | DX: L89.612 Pressure ulcer of right heel, stage 2 (principal); M96.89 Other intraoperative and postprocedural complications and disorders of the musculoskeletal system; R32 Unspecified urinary incontinence; M79.604 Pain in right leg; R53.1 Weakness; G82.20 Paraplegia, unspecified; F32.9 Major depressive disorder, single episode, unspecified; E55.9 Vitamin D deficiency, unspecified; Z93.3 Colostomy status; Z74.01 Bed confinement status ==

== ENCOUNTER → 2020-03-27 | Outpatient (CLI) | payer OTHER | LOC: WCC 10:55 | PROVIDERS: ATTEND Family Medicine | DX: L89.612 Pressure ulcer of right heel, stage 2 (principal); M96.89 Other intraoperative and postprocedural complications and disorders of the musculoskeletal system; R32 Unspecified urinary incontinence; R53.1 Weakness; M79.604 Pain in right leg; G82.20 Paraplegia, unspecified; F32.9 Major depressive disorder, single episode, unspecified; E55.9 Vitamin D deficiency, unspecified; Z93.3 Colostomy status; Z74.01 Bed confinement status ==

== ENCOUNTER → 2020-03-29 | Outpatient (CLI) | payer OTHER | LOC: WCC 11:37 | PROVIDERS: ATTEND Family Medicine | DX: L89.612 Pressure ulcer of right heel, stage 2 (principal); M96.89 Other intraoperative and postprocedural complications and disorders of the musculoskeletal system; R32 Unspecified urinary incontinence; M79.604 Pain in right leg; R53.1 Weakness; G82.20 Paraplegia, unspecified; E55.9 Vitamin D deficiency, unspecified; F32.9 Major depressive disorder, single episode, unspecified; Z74.01 Bed confinement status; Z93.3 Colostomy status ==

== ENCOUNTER → 2020-04-03 | Outpatient (CLI) | payer OTHER | LOC: WCC 14:22 | PROVIDERS: ATTEND Family Medicine | DX: L89.612 Pressure ulcer of right heel, stage 2 (principal); M96.89 Other intraoperative and postprocedural complications and disorders of the musculoskeletal system; R32 Unspecified urinary incontinence; R53.1 Weakness; M79.604 Pain in right leg; G82.20 Paraplegia, unspecified; F32.9 Major depressive disorder, single episode, unspecified; E55.9 Vitamin D deficiency, unspecified; Z74.01 Bed confinement status; Z93.3 Colostomy status ==

== ENCOUNTER → 2020-04-05 | Outpatient (CLI) | payer OTHER | LOC: WCC 14:50 | PROVIDERS: ATTEND Family Medicine | DX: L89.612 Pressure ulcer of right heel, stage 2 (principal); M96.89 Other intraoperative and postprocedural complications and disorders of the musculoskeletal system; R32 Unspecified urinary incontinence; M79.604 Pain in right leg; R53.1 Weakness; G82.20 Paraplegia, unspecified; F32.9 Major depressive disorder, single episode, unspecified; E55.9 Vitamin D deficiency, unspecified; Z74.01 Bed confinement status; Z93.3 Colostomy status ==

== ENCOUNTER → 2020-04-10 | Outpatient (CLI) | payer OTHER ==
[~2020-04-10] MED LIST changes: -COLLAGENASE OINTMENT 30 GM TUBE ONE; -LIDOCAINE VISC 2% SOLN 15 ML UDC ONE; -LIDOCAINE/PRILOCAINE 2.5-2.5% KIT ONE; -MINERAL OIL/PETROLAT/GLYCERI 6OZ BTL ONE; -TRYPSIN/BALSAM PERU/CASTOR OIL ONE
== END ==
LOC: WCC 13:27
PROVIDERS: ATTEND Family Medicine
DX: L89.612 Pressure ulcer of right heel, stage 2 (principal); M96.89 Other intraoperative and postprocedural complications and disorders of the musculoskeletal system; R32 Unspecified urinary incontinence; R53.1 Weakness; M79.604 Pain in right leg; G82.20 Paraplegia, unspecified; F32.9 Major depressive disorder, single episode, unspecified; E55.9 Vitamin D deficiency, unspecified; Z93.3 Colostomy status; Z74.01 Bed confinement status

== ENCOUNTER → 2020-04-12 | Outpatient (CLI) | payer OTHER | LOC: WCC 13:05 | PROVIDERS: ATTEND Family Medicine | DX: L89.612 Pressure ulcer of right heel, stage 2 (principal); M96.89 Other intraoperative and postprocedural complications and disorders of the musculoskeletal system; R32 Unspecified urinary incontinence; M79.604 Pain in right leg; R53.1 Weakness; G82.20 Paraplegia, unspecified; E55.9 Vitamin D deficiency, unspecified; F32.9 Major depressive disorder, single episode, unspecified; Z74.01 Bed confinement status; Z93.3 Colostomy status ==

== ENCOUNTER → 2020-04-14 | Outpatient (CLI) | payer OTHER | LOC: WCC 16:06 | PROVIDERS: ATTEND Family Medicine | DX: L89.612 Pressure ulcer of right heel, stage 2 (principal); M96.89 Other intraoperative and postprocedural complications and disorders of the musculoskeletal system; R32 Unspecified urinary incontinence; R53.1 Weakness; M79.604 Pain in right leg; G82.20 Paraplegia, unspecified; F32.9 Major depressive disorder, single episode, unspecified; E55.9 Vitamin D deficiency, unspecified; Z93.3 Colostomy status; Z74.01 Bed confinement status ==

== ENCOUNTER 2020-04-17 13:47 | Outpatient (RCR) | payer OTHER | END 2020-05-08 | LOC: WCC 13:47 | PROVIDERS: ATTEND Family Medicine | DX: L89.612 Pressure ulcer of right heel, stage 2 (principal); M96.89 Other intraoperative and postprocedural complications and disorders of the musculoskeletal system; R32 Unspecified urinary incontinence; R53.1 Weakness; M79.604 Pain in right leg; G82.20 Paraplegia, unspecified; F32.9 Major depressive disorder, single episode, unspecified; E55.9 Vitamin D deficiency, unspecified; Z93.3 Colostomy status; Z74.01 Bed confinement status ==

== ENCOUNTER → 2020-04-19 | Outpatient (CLI) | payer OTHER | LOC: WCC 14:11 | PROVIDERS: ATTEND Family Medicine | DX: L89.612 Pressure ulcer of right heel, stage 2 (principal); M96.89 Other intraoperative and postprocedural complications and disorders of the musculoskeletal system; R32 Unspecified urinary incontinence; M79.604 Pain in right leg; R53.1 Weakness; G82.20 Paraplegia, unspecified; E55.9 Vitamin D deficiency, unspecified; F32.9 Major depressive disorder, single episode, unspecified; Z74.01 Bed confinement status; Z93.3 Colostomy status ==

== ENCOUNTER → 2020-04-24 | Outpatient (CLI) | payer OTHER | LOC: WCC 09:26 | PROVIDERS: ATTEND Family Medicine | DX: L89.612 Pressure ulcer of right heel, stage 2 (principal); M96.89 Other intraoperative and postprocedural complications and disorders of the musculoskeletal system; R32 Unspecified urinary incontinence; R53.1 Weakness; M79.604 Pain in right leg; G82.20 Paraplegia, unspecified; F32.9 Major depressive disorder, single episode, unspecified; E55.9 Vitamin D deficiency, unspecified; Z93.3 Colostomy status; Z74.01 Bed confinement status ==

== ENCOUNTER → 2020-04-26 | Outpatient (CLI) | payer OTHER | LOC: WCC 12:06 | PROVIDERS: ATTEND Family Medicine | DX: L89.612 Pressure ulcer of right heel, stage 2 (principal); M96.89 Other intraoperative and postprocedural complications and disorders of the musculoskeletal system; R32 Unspecified urinary incontinence; M79.604 Pain in right leg; R53.1 Weakness; G82.20 Paraplegia, unspecified; F32.9 Major depressive disorder, single episode, unspecified; E55.9 Vitamin D deficiency, unspecified; Z74.01 Bed confinement status; Z93.3 Colostomy status ==

== ENCOUNTER → 2020-05-01 | Outpatient (CLI) | payer OTHER | LOC: WCC 15:45 | PROVIDERS: ATTEND Family Medicine | DX: L89.612 Pressure ulcer of right heel, stage 2 (principal); M96.89 Other intraoperative and postprocedural complications and disorders of the musculoskeletal system; R32 Unspecified urinary incontinence; R53.1 Weakness; M79.604 Pain in right leg; G82.20 Paraplegia, unspecified; F32.9 Major depressive disorder, single episode, unspecified; E55.9 Vitamin D deficiency, unspecified; Z93.3 Colostomy status; Z74.01 Bed confinement status ==

== ENCOUNTER → 2020-05-03 | Outpatient (CLI) | payer OTHER | LOC: WCC 13:29 | PROVIDERS: ATTEND Family Medicine | DX: L89.612 Pressure ulcer of right heel, stage 2 (principal); M96.89 Other intraoperative and postprocedural complications and disorders of the musculoskeletal system; R32 Unspecified urinary incontinence; R53.1 Weakness; M79.604 Pain in right leg; G82.20 Paraplegia, unspecified; F32.9 Major depressive disorder, single episode, unspecified; E55.9 Vitamin D deficiency, unspecified; Z93.3 Colostomy status; Z74.01 Bed confinement status ==

== ENCOUNTER → 2020-05-08 | Outpatient (CLI) | payer OTHER | LOC: WCC 15:29 | PROVIDERS: ATTEND Family Medicine | DX: L89.612 Pressure ulcer of right heel, stage 2 (principal); M96.89 Other intraoperative and postprocedural complications and disorders of the musculoskeletal system; R32 Unspecified urinary incontinence; R53.1 Weakness; M79.604 Pain in right leg; G82.20 Paraplegia, unspecified; F32.9 Major depressive disorder, single episode, unspecified; E55.9 Vitamin D deficiency, unspecified; Z93.3 Colostomy status; Z74.01 Bed confinement status ==

== ENCOUNTER → 2020-05-10 | Outpatient (CLI) | payer OTHER ==
[~2020-05-10] MED LIST changes: +MINERAL OIL/PETROLAT/GLYCERI 6OZ BTL ONE; -MUPIROCIN 2% OINT 22 GM TUBE ONE
== END ==
LOC: WCC 09:51
PROVIDERS: ATTEND Family Medicine
DX: L89.612 Pressure ulcer of right heel, stage 2 (principal); M96.89 Other intraoperative and postprocedural complications and disorders of the musculoskeletal system; R32 Unspecified urinary incontinence; M79.604 Pain in right leg; R53.1 Weakness; G82.20 Paraplegia, unspecified; E55.9 Vitamin D deficiency, unspecified; F32.9 Major depressive disorder, single episode, unspecified; Z74.01 Bed confinement status; Z93.3 Colostomy status